=== PATIENT | male | born 2000 | race Two or more races ===

== ENCOUNTER 2021-11-22 21:45 | Observation (INO) ==
[2021-11-22] MEDS ORDERED: SODIUM CHLORIDE 0.9% 1000ML 1,000 ML IV ONE ×2 (22:03→22:53)
[2021-11-22] MEDS ORDERED: KETOROLAC TROMETHAMINE 15 MG/ML VIAL IV STA ×2 (22:03→22:53)
[2021-11-22 22:10] LABS: Basophils # (auto) 0.02 K/uL (0-0.2); Basophils % (auto) 0.3 %; Eosinophils # (auto) 0.08 K/uL (0-0.5); Hematocrit (blood only) 41.2 % (42-52); Hemoglobin 14.3 g/dL (14.0-18.0); Immature Granulocytes # (auto) 0.03 K/uL (0.00-0.02); Immature Granulocytes % (auto) 0.4 %; Lymphocytes # (auto) 2.45 K/uL (1.2-3.4); Mean Corpuscular Hgb Conc 34.7 g/dL (32-36); Mean Corpuscular Volume 86.6 fL (80-100); Mean Platelet Volume 9.5 fL (7.4-10.4); Monocytes # (auto) 0.71 K/uL (0.11-0.59); Monocytes % (auto) 9.3 %; Neutrophils # (auto) 4.36 K/uL (1.4-6.5); Platelet Count 318 K/uL (130-400); RDW Coefficient of Variation 13.1 % (11.5-14.5); RDW Standard Deviation 41.9 fL (36.4-46.3); Red Blood Count 4.76 M/uL (4.7-6.1); White Blood Count 7.65 K/uL (4.8-10.8)
[2021-11-22 22:22] LABS: Partial Thromboplastin Time 28.5 Seconds (21.0-31.0); Prothrombin Time 10.9 Seconds (9.0-12.0)
[2021-11-22 23:06] LABS: Troponin I High Sensitivity 5.2 pg/ml (0-20)
[2021-11-22 23:11] LABS: Alanine Aminotransferase 50 U/L (7-52); Alkaline Phosphatase 85 U/L (34-104); Anion Gap 4 (3-11); Aspartate Aminotransferase 29 U/L (13-39); BUN Creatinine Ratio 16.9 (10-20); Bilirubin,Total 0.5 mg/dl (0.2-1.0); Blood Urea Nitrogen 14 mg/dl (6-23); C Reactive Protein < 0.50 mg/dl (0-0.5); Calcium 8.1 mg/dl (8.5-10.1); Carbon Dioxide 26 mmol/L (21-32); Chloride 106 mmol/L (98-107); Creatinine Clr Calc Pharmacy 141.4 ml/min; Est GFR (African American) 143.7 ml/min; Glucose 91 mg/dl (70-99(Fasting)); Potassium 3.4 mmol/L (3.5-5.1); Sodium 136 mmol/L (136-145); Total Protein 6.2 gm/dl (6.0-8.3)
[2021-11-22 23:24] LABS: Albumin Globulin Ratio 1.8 (0.9-2); Globulin 2.2 gm/dl (2.5-4.0)
[2021-11-23 00:27] LABS: Adenovirus PCR Not Detected (NotDetected); Bordetella parapertussis PCR Not Detected (NotDetected); Bordetella pertussis PCR Not Detected (NotDetected); Chlamydia pneumoniae PCR Not Detected (NotDetected); Coronavirus 229E PCR Not Detected (NotDetected); Coronavirus CoV-2 (COVID19)PCR Not Detected (NotDetected); Coronavirus HKU1 PCR Not Detected (NotDetected); Coronavirus NL63 PCR Not Detected (NotDetected); Coronavirus OC43PCR Not Detected (NotDetected); Human Metapneumovirus PCR Not Detected (NotDetected); Influenza A PCR Not Detected (NotDetected); Influenza B PCR Not Detected (NotDetected); Mycoplasma pneumoniae PCR Not Detected (NotDetected); Parainfluenza Virus 1 PCR Not Detected (NotDetected); Parainfluenza Virus 2 PCR Not Detected (NotDetected); Parainfluenza Virus 3 PCR Not Detected (NotDetected); Parainfluenza Virus 4 PCR Not Detected (NotDetected); Respiratory Syncytial VirusPCR Not Detected (NotDetected); Rhinovirus/Enterovirus PCR Not Detected (NotDetected)
[2021-11-23 00:53] LABS: Lyme Ab IgG w/WB Rflx Negative (Negative); Lyme Ab IgM w/WB Rflx Negative (Negative)
--- NOTE | 2021-11-23 01:50 | Emergency Department Note ---
Impression & Plan Pericarditis, Feels feverish, Abnormal ECG ED Provider Note NAME: FAITH LARRY AGE: 21 SEX: M ARRIVES VIA: Walk-In INFORMANT: Patient ED PROVIDER(S): Jacob Abraham MD CHIEF COMPLAINT: chest pain PLAN: Disposition: Admit MEDICAL DECISION MAKING: The patient is a pleasant 21-year-old gentleman, from [place], Burmese-speaking only who presents to the emergency department accompanied by his friend for evaluation of ongoing constant chest pain since this morning after being seen in the emergency department this morning for the same symptoms with normal troponin. Patient reports his pain has continued and has worsened and so presents again this evening. He reports feeling feverish but denies objective fevers. He reports feeling nauseated at times but no vomiting diarrhea. He denies any cough or congestion. He denies any prior episodes similar to this. He denies any recent heavy lifting or straining. He works at a local [employer]. He reports that the pain is worse when lying flat and feels like a heavy pressure. This provider is a [place]mese speaker and obtained the history directly from the patient. On arrival the patient is uncomfortable but in no acute distress, afebrile with stable vital signs. Appears clinically dry. Skin is warm/clammy, Exam is otherwise unremarkable. EKG demonstrates ST abnormalities that appear to have changed from his EKG earlier today which demonstrated ST abnormality/early repolarization and this evening demonstrates T wave inversions in V2 and V3. WBC, hemoglobin and platelets within normal limits. ESR and CRP within normal limits. Chemistry without metabolic acidosis. Potassium 3.4 and electrolytes otherwise unremarkable. LFTs unremarkable. High-sensitivity troponin 5.2, within normal limits. Respiratory viral panel/bio fire was performed and was negative. Lyme screen was negative. Anaplasma/Babesia smear negative. DNA testing pending. CT of the chest was performed and per preliminary stat rad report negative for PE or acute process otherwise. This provider performed a limited bedside cardiac ultrasound and this demonstrated no overt pericardial effusion. Patient did report some improvement in his symptoms after IV fluid ration, IV APAP and repeat doses of Toradol however pain still persisting. Repeat EKG further dynamic changes with reversal of T wave inversion in V3. Patient's presentation and evaluation is suggestive of pericarditis. Patient does not have a pcp. Given his dynamic EKG changes the patient does agree with plan for admission for further evaluation and management. Colchicine ordered. Case was discussed with Dr. Bell, [facility] hospitalist, who will evaluate the patient for admission. Triage Nursing notes reviewed and agree them. Prior medical records reviewed Vital Signs: reviewed and remarkable for no significant abnormalities Differential diagnosis: Cardiac ischemia, aortic dissection, pulmonary embolism, pneumothorax, pneumonia, pericarditis, myocarditis, esophageal rupture, GERD, cholecystitis, pancreatitis, musculoskeletal, as well as other pathologies. ER treatment provided: See below. Diagnostics interpreted by me: ECG 2153: Normal sinus rhythm, 79 bpm, incomplete right bundle branch block, ST abnormalities/early repolarization, T wave inversions in V2/V3 new from EKG this morning. QTC 394, QRS 104 ECG 0200: Normal sinus rhythm, 68 bpm, no ectopy, ST abnormality/early repolarization, V3 T waves upright. QTC 389, QRS 106 Cardiac Monitoring: An order for continuous cardiac monitoring was placed and demonstrated sinus rhythm, 65 bpm, no ectopy Laboratory studies: See below Imaging studies: See below Preliminary Findings Only See Final Report For Complete Findings CTA CHEST: No pulmonary emboli or acute cardiopulmonary process. Radiologist: Bennie Mosley MD Study ready at 23:54 and initial results transmitted at 00:10 Consultation(s): Case was discussed with Dr. Bell, [facility] hospitalist, who will evaluate the patient for admission. HPI: The patient is a pleasant 21-year-old gentleman, from [place], Burmese- speaking only who presents emerged department accompanied by his friend for evaluation of ongoing constant chest pain since this morning after being seen in the emergency department this morning for the same symptoms with normal troponin. Patient reports his pain has continued and has worsened and so presents again this evening. He reports feeling feverish but denies objective fevers. He reports feeling nauseated at times but no vomiting diarrhea. He denies any cough or congestion. He denies any prior episodes similar to this. He denies any recent heavy lifting or straining. He works at a local restaurant. He reports that the pain is worse when lying flat and feels like a heavy pressure. This provider is a [place]mese speaker, obtained the history directly from the patient. ROS: See above HPI for pertinent positives & negatives. A total of 10 systems reviewed and were otherwise negative. VITALS:See Below PHYSICAL EXAMINATION: GENERAL: Awake, alert, uncomfortable-appearing, in no distress HENT: Normocephalic, atraumatic. Oropharynx with dry mucous membranes and otherwise unremarkable. EYES: Normal conjunctiva. Sclera non-icteric. NECK: Supple. No nuchal rigidity. FROM. No JVD. RESPIRATORY: Clear to auscultation. CARDIAC: Regular rate, normal rhythm. Extremities warm and well perfused. Pulses equal. ABDOMEN: Soft, non-distended. No tenderness to palpation. No rebound or guarding. No masses. RECTAL: Deferred. MUSCULOSKELETAL: Chest examination reveals no tenderness. The back is symmetrical on inspection without obvious abnormality. There is no CVA t enderness to palpation. No joint edema. LOWER EXTREMITIES: Calves are equal size bilaterally and non-tender. No edema. No discoloration. NEURO: Normal sensorium. No sensory or motor deficits noted. SKIN: Warm/clammy, No rash or jaundice noted. Jacob Abraham MD Past Med/Surg History Medical History No active medical problems Family History Denies family history of Coronary heart disease Pulmonary embolism Social History Smoking Status: Never smoker Hx Alcohol Use: No Hx Substance Use: No Preferred Language: Burmese Communication Tools: Other Quality Assurance Engineer Required: Yes Beliefs That Will Affect Care: None Current Living Situation: Other Current Living Situation Comment: living with coworker Feels Safe at Home: Yes Safety Concerns: Feels Safe At This Time Assistive Devices: None Allergies Allergies Allergy/AdvReac Type Severity Reaction Status Date / Time No Known Allergies Allergy Verified 11/23/21 00:31 Home Meds Home Medications Medication Instructions Recorded Confirmed acetaminophen 325 mg tablet 650 mg PO DIRECTED PRN 11/23/21 11/23/21 (Tylenol) Results & Data (ED) Vital Signs Vital Signs - 24 hr 11/22/21 21:49 11/22/21 22:10 11/23/21 01:06 Temperature 36.6 C 36.8 C Temperature Source Temporal Artery Scan Oral Pulse Rate 90 Pulse Rate [Right Finger] 71 74 Pulse Rhythm [Right Finger] Regular Pulse Strength [Right Finger] Normal Respiratory Rate 18 17 16 Respiratory Effort / Characteristics Non-Labored Spontaneous Non-Labored Non-Labored Spontaneous Respiratory Depth Normal Normal Normal Blood Pressure 134/86 Blood Pressure [Right Arm] 124/70 123/78 Blood Pressure Mean 102 Blood Pressure Mean [Right Arm] 88 93 Blood Pressure Position Sitting Blood Pressure Position [Right Arm] Lying Pulse Oximetry 100 98 100 Oxygen Delivery Method Room Air Room Air Room Air Sepsis Recent Fever Within 48 Hours Yes Sepsis New/Unexplained Change in Mental Status N/A Sepsis Action Taken by Nursing No Action Required Pulse Oximetry Post Tiitration 98 11/23/21 03:00 Temperature Temperature Source Pulse Rate Pulse Rate [Right Finger] 65 Pulse Rhythm [Right Finger] Pulse Strength [Right Finger] Respiratory Rate 18 Respiratory Effort / Characteristics Respiratory Depth Blood Pressure Blood Pressure [Right Arm] 126/78 Blood Pressure Mean Blood Pressure Mean [Right Arm] 94 Blood Pressure Position Blood Pressure Position [Right Arm] Pulse Oximetry 99 Oxygen Delivery Method Room Air Sepsis Recent Fever Within 48 Hours Sepsis New/Unexplained Change in Mental Status Sepsis Action Taken by Nursing Pulse Oximetry Post Tiitration Laboratory Data Attestation: I reviewed the patient's lab results. Result diagrams: 11/22/21 21:59 11/22/21 22:30 Lab Results 11/22/21 11/22/21 11/22/21 Range/Units 21:59 21:59 21:59 WBC 7.65 (4.8-10.8) K/uL RBC 4.76 (4.7-6.1) M/uL Hgb 14.3 (14.0-18.0) g/dL Hct 41.2 L (42-52) % MCV 86.6 (80-100) fL MCH 30.0 (25-34) pg MCHC 34.7 (32-36) g/dL RDW Std Deviation 41.9 (36.4-46.3) fL RDW Coeff of Delon 13.1 (11.5-14.5) % Plt Count 318 (130-400) K/uL MPV 9.5 (7.4-10.4) fL Immature Gran % (Auto) 0.4 % Neut % (Auto) 57.0 % Lymph % (Auto) 32.0 % Whitman % (Auto) 9.3 % Eos % (Auto) 1.0 % Baso % (Auto) 0.3 % Neut # (Auto) 4.36 (1.4-6.5) K/uL Lymph # (Auto) 2.45 (1.2-3.4) K/uL Whitman # (Auto) 0.71 H (0.11-0.59) K/uL Eos # (Auto) 0.08 (0-0.5) K/uL Baso # (Auto) 0.02 (0-0.2) K/uL Immature Gran # (Auto) 0.03 H (0.00-0.02) K/uL ESR 5 (0-15) mm/hr PT 10.9 (9.0-12.0) Seconds INR 1.0 (0.9-1.1) APTT 28.5 (21.0-31.0) Seconds PTT Ratio 1.0 Sodium (136-145) mmol/L Potassium (3.5-5.1) mmol/L Chloride (98-107) mmol/L Carbon Dioxide (21-32) mmol/L Anion Gap (3-11) BUN (6-23) mg/dl Creatinine (0.6-1.4) mg/dl Est Cr Clr Drug Dosing ml/min Est GFR ( Amer) ml/min Est GFR (Non-Af Amer) ml/min BUN/Creatinine Ratio (10-20) Glucose (70-99(Fasting)) mg/dl Calcium (8.5-10.1) mg/dl Phosphorus (2.5-4.9) mg/dl Magnesium (1.7-2.4) mg/dl Total Bilirubin (0.2-1.0) mg/dl AST (13-39) U/L ALT (7-52) U/L Alkaline Phosphatase (34-104) U/L Troponin I High Sens (0-20) pg/ml C-Reactive Protein (0-0.5) mg/dl Total Protein (6.0-8.3) gm/dl Albumin (3.4-5.0) gm/dl Globulin (2.5-4.0) gm/dl Albumin/Globulin Ratio (0.9-2) Adenovirus (PCR) (NotDetected) Anaplasma Smear Babesia Smear B. pertussis DNA (PCR) (NotDetected) B.parapertussis DNA PCR (NotDetected) Lyme Disease IgG Ab (Negative) Lyme Disease IgM Ab (Negative) C. pneumoniae DNA (PCR) (NotDetected) Coronavirus OC43 (PCR) (NotDetected) Coronavirus HKU1 (PCR) (NotDetected) Coronavirus 229E (PCR) (NotDetected) SARS-CoV-2 (PCR) (NotDetected) Coronavirus NL63 (PCR) (NotDetected) Human Metapneumovir PCR (NotDetected) Influenza Type A (PCR) (NotDetected) Influenza Type B (PCR) (NotDetected) M. pneumoniae (PCR) (NotDetected) Parainfluenza 1 (PCR) (NotDetected) Parainfluenza 2 (PCR) (NotDetected) Parainfluenza 3 (PCR) (NotDetected) Parainfluenza 4 (PCR) (NotDetected) RSV (PCR) (NotDetected) Entero/Rhino (PCR) (NotDetected) 11/22/21 11/22/21 11/22/21 Range/Units 22:30 23:12 23:17 WBC (4.8-10.8) K/uL RBC (4.7-6.1) M/uL Hgb (14.0-18.0) g/dL Hct (42-52) % MCV (80-100) fL MCH (25-34) pg MCHC (32-36) g/dL RDW Std Deviation (36.4-46.3) fL RDW Coeff of Delon (11.5-14.5) % Plt Count (130-400) K/uL MPV (7.4-10.4) fL Immature Gran % (Auto) % Neut % (Auto) % Lymph % (Auto) % Whitman % (Auto) % Eos % (Auto) % Baso % (Auto) % Neut # (Auto) (1.4-6.5) K/uL Lymph # (Auto) (1.2-3.4) K/uL Whitman # (Auto) (0.11-0.59) K/uL Eos # (Auto) (0-0.5) K/uL Baso # (Auto) (0-0.2) K/uL Immature Gran # (Auto) (0.00-0.02) K/uL ESR (0-15) mm/hr PT (9.0-12.0) Seconds INR (0.9-1.1) APTT (21.0-31.0) Seconds PTT Ratio Sodium 136 (136-145) mmol/L Potassium 3.4 L (3.5-5.1) mmol/L Chloride 106 (98-107) mmol/L Carbon Dioxide 26 (21-32) mmol/L Anion Gap 4 (3-11) BUN 14 (6-23) mg/dl Creatinine 0.83 (0.6-1.4) mg/dl Est Cr Clr Drug Dosing 141.4 ml/min Est GFR ( Amer) 143.7 ml/min Est GFR (Non-Af Amer) 124.0 ml/min BUN/Creatinine Ratio 16.9 (10-20) Glucose 91 (70-99(Fasting)) mg/dl Calcium 8.1 L (8.5-10.1) mg/dl Phosphorus 3.0 (2.5-4.9) mg/dl Magnesium 2.0 (1.7-2.4) mg/dl Total Bilirubin 0.5 (0.2-1.0) mg/dl AST 29 (13-39) U/L ALT 50 (7-52) U/L Alkaline Phosphatase 85 (34-104) U/L Troponin I High Sens 5.2 (0-20) pg/ml C-Reactive Protein < 0.50 (0-0.5) mg/dl Total Protein 6.2 D (6.0-8.3) gm/dl Albumin 4.0 (3.4-5.0) gm/dl Globulin 2.2 L (2.5-4.0) gm/dl Albumin/Globulin Ratio 1.8 (0.9-2) Adenovirus (PCR) Not Detected (NotDetected) Anaplasma Smear See Comment Babesia Smear See Comment B. pertussis DNA (PCR) Not Detected (NotDetected) B.parapertussis DNA PCR Not Detected (NotDetected) Lyme Disease IgG Ab (Negative) Lyme Disease IgM Ab (Negative) C. pneumoniae DNA (PCR) Not Detected (NotDetected) Coronavirus OC43 (PCR) Not Detected (NotDetected) Coronavirus HKU1 (PCR) Not Detected (NotDetected) Coronavirus 229E (PCR) Not Detected (NotDetected) SARS-CoV-2 (PCR) Not Detected (NotDetected) Coronavirus NL63 (PCR) Not Detected (NotDetected) Human Metapneumovir PCR Not Detected (NotDetected) Influenza Type A (PCR) Not Detected (NotDetected) Influenza Type B (PCR) Not Detected (NotDetected) M. pneumoniae (PCR) Not Detected (NotDetected) Parainfluenza 1 (PCR) Not Detected (NotDetected) Parainfluenza 2 (PCR) Not Detected (NotDetected) Parainfluenza 3 (PCR) Not Detected (NotDetected) Parainfluenza 4 (PCR) Not Detected (NotDetected) RSV (PCR) Not Detected (NotDetected) Entero/Rhino (PCR) Not Detected (NotDetected) 11/22/21 Range/Units 23:17 WBC (4.8-10.8) K/uL RBC (4.7-6.1) M/uL Hgb (14.0-18.0) g/dL Hct (42-52) % MCV (80-100) fL MCH (25-34) pg MCHC (32-36) g/dL RDW Std Deviation (36.4-46.3) fL RDW Coeff of Delon (11.5-14.5) % Plt Count (130-400) K/uL MPV (7.4-10.4) fL Immature Gran % (Auto) % Neut % (Auto) % Lymph % (Auto) % Whitman % (Auto) % Eos % (Auto) % Baso % (Auto) % Neut # (Auto) (1.4-6.5) K/uL Lymph # (Auto) (1.2-3.4) K/uL Whitman # (Auto) (0.11-0.59) K/uL Eos # (Auto) (0-0.5) K/uL Baso # (Auto) (0-0.2) K/uL Immature Gran # (Auto) (0.00-0.02) K/uL ESR (0-15) mm/hr PT (9.0-12.0) Seconds INR (0.9-1.1) APTT (21.0-31.0) Seconds PTT Ratio Sodium (136-145) mmol/L Potassium (3.5-5.1) mmol/L Chloride (98-107) mmol/L Carbon Dioxide (21-32) mmol/L Anion Gap (3-11) BUN (6-23) mg/dl Creatinine (0.6-1.4) mg/dl Est Cr Clr Drug Dosing ml/min Est GFR ( Amer) ml/min Est GFR (Non-Af Amer) ml/min BUN/Creatinine Ratio (10-20) Glucose (70-99(Fasting)) mg/dl Calcium (8.5-10.1) mg/dl Phosphorus (2.5-4.9) mg/dl Magnesium (1.7-2.4) mg/dl Total Bilirubin (0.2-1.0) mg/dl AST (13-39) U/L ALT (7-52) U/L Alkaline Phosphatase (34-104) U/L Troponin I High Sens (0-20) pg/ml C-Reactive Protein (0-0.5) mg/dl Total Protein (6.0-8.3) gm/dl Albumin (3.4-5.0) gm/dl Globulin (2.5-4.0) gm/dl Albumin/Globulin Ratio (0.9-2) Adenovirus (PCR) (NotDetected) Anaplasma Smear Babesia Smear B. pertussis DNA (PCR) (NotDetected) B.parapertussis DNA PCR (NotDetected) Lyme Disease IgG Ab Negative (Negative) Lyme Disease IgM Ab Negative (Negative) C. pneumoniae DNA (PCR) (NotDetected) Coronavirus OC43 (PCR) (NotDetected) Coronavirus HKU1 (PCR) (NotDetected) Coronavirus 229E (PCR) (NotDetected) SARS-CoV-2 (PCR) (NotDetected) Coronavirus NL63 (PCR) (NotDetected) Human Metapneumovir PCR (NotDetected) Influenza Type A (PCR) (NotDetected) Influenza Type B (PCR) (NotDetected) M. pneumoniae (PCR) (NotDetected) Parainfluenza 1 (PCR) (NotDetected) Parainfluenza 2 (PCR) (NotDetected) Parainfluenza 3 (PCR) (NotDetected) Parainfluenza 4 (PCR) (NotDetected) RSV (PCR) (NotDetected) Entero/Rhino (PCR) (NotDetected) Administered Medications Acetaminophen (Acetaminophen 325 Mg Tab) 650 mg PO Q4H PRN PRN Reason: Pain or Fever Stop: 12/23/21 05:25 Last Admin: 11/23/21 05:38 Dose: 650 mg Documented by: [id number] Discontinued Medications Colchicine (Colchicine 0.6 Mg Tab) 0.6 mg PO NOW ONE Stop: 11/23/21 02:32 Last Admin: 11/23/21 03:28 Dose: 0.6 mg Documented by: [id number] Sodium Chloride (Nss 1000ml) 1,000 mls @ 999 mls/hr IV .Q1H1M ONE Stop: 11/22/21 23:03 Last Infusion: 11/22/21 23:25 Dose: 0 mls/hr Documented by: [id number] Admin: 11/22/21 22:14 Dose: 999 mls/hr Documented by: [id number] Sodium Chloride (Nss 1000ml) 1,000 mls @ 999 mls/hr IV .Q1H1M ONE Stop: 11/22/21 23:53 Last Infusion: 11/23/21 01:07 Dose: 0 mls/hr Documented by: [id number] Admin: 11/22/21 23:15 Dose: 999 mls/hr Documented by: [id number] Ketorolac Tromethamine (Ketorolac Tromethamine 15 Mg/Ml Vial) 15 mg IV NOW STA Stop: 11/22/21 22:04 Last Admin: 11/22/21 22:13 Dose: 15 mg Documented by: [id number] Ketorolac Tromethamine (Ketorolac Tromethamine 15 Mg/Ml Vial) 15 mg IV NOW STA Stop: 11/22/21 22:54 Last Admin: 11/22/21 23:15 Dose: 15 mg Documented by: [id number] Potassium Chloride (Potassium Chloride Crtab 20 Meq Tabcr) 40 meq PO NOW STA Stop: 11/23/21 03:15 Last Admin: 11/23/21 03:29 Dose: 40 meq Documented by: [id number] Imaging Data Radiologist's Impression: [facility] Preliminary Findings Only See Final Report For Complete Findings CTA CHEST: No pulmonary emboli or acute cardiopulmonary process. Radiologist: Bennie Mosley MD Study ready at 23:54 and initial results transmitted at 00:10 Discharge Plan Visit Data Chief Complaint: Chest Pain Stated Complaint: CHEST PAIN, HEART PALPITATIONS ED Provider: Jacob Abraham Discharge Problem: Pericarditis, Feels feverish, Abnormal ECG Discharge Instructions Interventions: ED Discharge Assessment Last Done: 11/23/21 04:51
[2021-11-23] MEDS ORDERED: COLCHICINE 0.6 MG TAB PO ONE (02:31)
[2021-11-23] MEDS ORDERED: POTASSIUM CHLORIDE CRTAB 20 MEQ TABCR PO STA (03:14)
--- NOTE | 2021-11-23 03:14 | History & Physical Report ---
Date of Service November 23, 2021 Assessment & Plan (1) Atypical chest pain: Plan: Atypical chest pain- Reproducible Changes noted on EKG by that of right bundle branch block and otherwise lead placement CT angiography without PE or pericardial effusion No pericardial friction rub on exam Observation to telemetry, order echocardiogram, and cardiology consult History of Present Illness Chief Complaint: The patient initially presented to the emergency department on the morning of 11/22 with complaint of intermittent sharp chest discomfort accompanied by nausea without vomiting or abdominal pain. He had a work-up at that time including normal laboratory work including a highly sensitive troponin, normal EKG and normal D-dimer. He was given a dose of Toradol IV and discharged to home after improvement in his discomfort. The patient presents to the emergency department this evening with the same complaint. Laboratories again were normal, except for a potassium of 3.4. EKG showed a right bundle branch block and some variable changes due to lead placement. CT angiography was negative for PE. The patient has been referred by emergency department due to concerns regarding possible pericarditis Primary Care Provider: NO PCP Allergies Allergy/AdvReac Type Severity Reaction Status Date / Time No Known Allergies Allergy Verified 11/23/21 00:31 Home Medications Medication Instructions Recorded Confirmed Type acetaminophen 325 mg tablet 650 mg PO DIRECTED PRN 11/23/21 11/23/21 History (Tylenol) Past Med/Surg History Medical History No active medical problems Family History Denies family history of Coronary heart disease Pulmonary embolism Social History Smoking Status: Never smoker Preferred Language: Mauritanian Communication Tools: Other Feels Safe at Home: Yes Review of Systems Review of Systems: Review of systems for the most part is limited due to Mauritanian-speaking only patient, but is as noted above. Physical Exam Physical Exam: The patient is awake, alert, well developed and well nourished, normocephalic and atraumatic, lying in bed and in no acute distress. HEENT--PERRL, EOMI, mucous membranes and oropharynx Neck--supple. No JVD. No bruits. Thyroid normal, trachea midline, no adenopathy. Heart--normal S1 and S2. No murmurs, rubs or gallops. Lungs--clear bilaterally, no respiratory distress, no accessory muscle use. Abdomen--normal bowel sounds and soft. Nontender. Nondistended, no hernias or masses, no organomegaly. Extremities--no cyanosis or clubbing. No edema. Dermatologic--normal skin turgor, normal color, no abnormal lymph nodes, no rash. Neurologic--cranial nerves II through XII grossly intact. Rheumatologic--normal range of motion. Psychiatric--normal affect. Results & Data Results & Data ([facility]) Vital Signs (Past 12 Hours) Vital Signs Temp Pulse Pulse Resp BP BP Pulse Ox 11/23/21 01:06 74 16 123/78 100 11/22/21 22:10 36.8 C 71 17 124/70 98 11/22/21 21:49 36.6 C 90 18 134/86 100 Laboratory Results Laboratory Results WBC 7.65 K/uL (4.8-10.8) 11/22/21 21:59 RBC 4.76 M/uL (4.7-6.1) 11/22/21 21:59 Hgb 14.3 g/dL (14.0-18.0) 11/22/21 21:59 Hct 41.2 % (42-52) L 11/22/21 21:59 MCV 86.6 fL (80-100) 11/22/21 21:59 MCH 30.0 pg (25-34) 11/22/21 21:59 MCHC 34.7 g/dL (32-36) 11/22/21 21:59 RDW Std Deviation 41.9 fL (36.4-46.3) 11/22/21 21:59 RDW Coeff of Delon 13.1 % (11.5-14.5) 11/22/21 21:59 Plt Count 318 K/uL (130-400) 11/22/21 21:59 MPV 9.5 fL (7.4-10.4) 11/22/21 21:59 Immature Gran % (Auto) 0.4 % 11/22/21 21:59 Neut % (Auto) 57.0 % 11/22/21 21:59 Lymph % (Auto) 32.0 % 11/22/21 21:59 [place] % (Auto) 9.3 % 11/22/21 21:59 Eos % (Auto) 1.0 % 11/22/21 21:59 Baso % (Auto) 0.3 % 11/22/21 21:59 Neut # (Auto) 4.36 K/uL (1.4-6.5) 11/22/21 21:59 Lymph # (Auto) 2.45 K/uL (1.2-3.4) 11/22/21 21:59 [place] # (Auto) 0.71 K/uL (0.11-0.59) H 11/22/21 21:59 Eos # (Auto) 0.08 K/uL (0-0.5) 11/22/21 21:59 Baso # (Auto) 0.02 K/uL (0-0.2) 11/22/21 21:59 Immature Gran # (Auto) 0.03 K/uL (0.00-0.02) H 11/22/21 21:59 ESR 5 mm/hr (0-15) 11/22/21 21:59 PT 10.9 Seconds (9.0-12.0) 11/22/21 21:59 INR 1.0 (0.9-1.1) 11/22/21 21:59 APTT 28.5 Seconds (21.0-31.0) 11/22/21 21: PTT Ratio 1.0 11/22/21 21:59 Sodium 136 mmol/L (136-145) 11/22/21 22:30 Potassium 3.4 mmol/L (3.5-5.1) L 11/22/21 22:30 Chloride 106 mmol/L (98-107) 11/22/21 22:30 Carbon Dioxide 26 mmol/L (21-32) 11/22/21 22:30 Anion Gap 4 (3-11) 11/22/21 22:30 BUN 14 mg/dl (6-23) 11/22/21 22:30 Creatinine 0.83 mg/dl (0.6-1.4) 11/22/21 22:30 Est Cr Clr Drug Dosing 141.4 ml/min 11/22/21 22:30 Est GFR ( Amer) 143.7 ml/min 11/22/21 22:30 Est GFR (Non-Af Amer) 124.0 ml/min 11/22/21 22:30 BUN/Creatinine Ratio 16.9 (10-20) 11/22/21 22:30 Glucose 91 mg/dl (70-99(Fasting)) 11/22/21 22:30 Calcium 8.1 mg/dl (8.5-10.1) L 11/22/21 22:30 Phosphorus 3.0 mg/dl (2.5-4.9) 11/22/21 22:30 Magnesium 2.0 mg/dl (1.7-2.4) 11/22/21 22:30 Total Bilirubin 0.5 mg/dl (0.2-1.0) 11/22/21 22:30 AST 29 U/L (13-39) 11/22/21 22:30 ALT 50 U/L (7-52) 11/22/21 22:30 Alkaline Phosphatase 85 U/L (34-104) 11/22/21 22:30 Troponin I High Sens 5.2 pg/ml (0-20) 11/22/21 22:30 C-Reactive Protein < 0.50 mg/dl (0-0.5) 11/22/21 22:30 Total Protein 6.2 gm/dl (6.0-8.3) D 11/22/21 22:30 Albumin 4.0 gm/dl (3.4-5.0) 11/22/21 22:30 Globulin 2.2 gm/dl (2.5-4.0) L 11/22/21 22:30 Albumin/Globulin Ratio 1.8 (0.9-2) 11/22/21 22:30 Adenovirus (PCR) Not Detected (NotDetected) 11/22/21 23:12 Anaplasma Smear See Comment 11/22/21 23:17 Babesia Smear See Comment 11/22/21 23:17 B. pertussis DNA (PCR) Not Detected (NotDetected) 11/22/21 23:12 B.parapertussis DNA PCR Not Detected (NotDetected) 11/22/21 23:12 Lyme Disease IgG Ab Negative (Negative) 11/22/21 23:17 Lyme Disease IgM Ab Negative (Negative) 11/22/21 23:17 C. pneumoniae DNA (PCR) Not Detected (NotDetected) 11/22/21 23:12 Coronavirus OC43 (PCR) Not Detected (NotDetected) 11/22/21 23:12 Coronavirus HKU1 (PCR) Not Detected (NotDetected) 11/22/21 23:12 Coronavirus 229E (PCR) Not Detected (NotDetected) 11/22/21 23:12 SARS-CoV-2 (PCR) Not Detected (NotDetected) 11/22/21 23:12 Coronavirus NL63 (PCR) Not Detected (NotDetected) 11/22/21 23:12 Human Metapneumovir PCR Not Detected (NotDetected) 11/22/21 23:12 Influenza Type A (PCR) Not Detected (NotDetected) 11/22/21 23:12 Influenza Type B (PCR) Not Detected (NotDetected) 11/22/21 23:12 M. pneumoniae (PCR) Not Detected (NotDetected) 11/22/21 23:12 Parainfluenza 1 (PCR) Not Detected (NotDetected) 11/22/21 23:12 Parainfluenza 2 (PCR) Not Detected (NotDetected) 11/22/21 23:12 Parainfluenza 3 (PCR) Not Detected (NotDetected) 11/22/21 23:12 Parainfluenza 4 (PCR) Not Detected (NotDetected) 11/22/21 23:12 RSV (PCR) Not Detected (NotDetected) 11/22/21 23:12 Entero/Rhino (PCR) Not Detected (NotDetected) 11/22/21 23:12 Code Status & VTE Plan Code Status Full code VTE Prophylaxis Plan VTE Prophylaxis will be ordered: Yes PG Care Time/CCT Total # of Minutes Spent Total Time Spent with Patient: Total time spent is greater than 50% in coordination of care (as documented) at patient's floor/unit and/or counseling patient: Coding Level of Care Code INT OBSERVATION CARE 70M LVL 3 Diagnoses Atypical chest pain R07.89
[2021-11-23] MEDS ORDERED: ACETAMINOPHEN 325 MG TAB PO PRN (05:26)
[2021-11-23] MEDS ORDERED: ONDANSETRON INJ 2 MG/ML 2 ML VIAL IV PRN (05:26)
--- NOTE | 2021-11-23 07:29 | CT Scan Report ---
CT angio chest PE protocol CLINICAL HISTORY: chest pain PE TECHNIQUE: Multidetector row helical CT of the chest was performed with angiographic protocol. Garcia l and sagittal reformations were obtained. Coronal and sagittal MIPS were obtained from the axial nitish a set and were submitted for review. Automated dose lowering techniques and/or adjustment according to patient size were utilized for this exam. CT DOSE: 334.06 mGy.cm Comparison: None available at the time of this dictation. FINDINGS: Lungs and pleura: Normal. Heart and pericardium: Heart size is normal. No pericardial effusion. Vessels: No evidence of pulmonary embolism. Mediastinum and kelby: Subcentimeter lymph nodes are seen. Chest wall and lower neck: Unremarkable. Abdomen: Unremarkable. Bones: Unremarkable. IMPRESSION: No evidence of pulmonary embolism. ACT 112: Negative or not required by law. Electronically signed by: Clive Shoemaker M.D. 11/23/2021 7:28 AM
--- NOTE | 2021-11-23 10:27 | Cardiology Consultation ---
Date of Consultation November 23, 2021 Assessment & Plan (1) Chest pain: Given this pt's negative troponin, reproducible chest pain on palpation and near complete resolution of pain with anti-inflammatory medication, I do not suspect his chest pain is cardiovascular in etiology. He likely has a musculoskeletal cause of chest pain, possibly costochondritis. However, his serial EKGs did demonstrate persistent ST segment abnormality and T-wave inversions. Additionally, his clinical history does raise concern for pericarditis. While he does lack the classic pericardial friction rub, an echocardiogram is warranted. Echocardiogram results- normal EF 60-65%, no wall motion abnormality. Likely musculoskeletal/costochondritis. Cardiology signing off, contact with any further questions. Please see Dr. Leyva's attestation for any further updates. Supervising Physician Co-Signing Physician Notes Pt seen and examined. Agree with Dr. Rojas's assessment and plan. Suspect musculoskeletal chest pain based on physical exam and negative w/u. Stable for hospital discharge on NSAIDs. Followup with PCP. History of Present Illness Reason for Consultation: Chest pain Requesting Physician: Westley Bell MD Attending Physician: Myra Mcdonnell MD History of Present Illness 21 yo M with no significant PMH presenting with acute chest pain. 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 Pt reports chest pain beginning yesterday morning. Describes pain as sudden onset, L substernal crushing pain with 7/10 severity, radiation to the L shoulder, constant and worsened by deep inspiration as well as laying supine. Never experienced this pain before. Pt urgently went to ED where he was hemodynamically stable, afebrile and workup revealed EKG with some ST abn ormality/early repolarization but otherwise unremarkable. Also found to have normal coagulation studies, D-dimer, negative CXR, mild transaminitis and hypokalemia at 3.4, negative troponin HS and CRP. Pt discharged home after IV Toradol improved his pain control with working diagnosis of musculoskeletal chest pain. Pain continued throughout day, remained constant and worsened. Accompanied by nausea and subjective fevers. Pt returned to ED later in evening- HDS, afebrile, workup- CTA negative, resolved transaminitis, K 3.4, RVP negative, tickborne illness panel negative. Repeat EKG demonstrated evolving ST abnormalities/early repolarization with new T wave inversions in V2 and V3. Limited bedside cardiac ultrasound did not find any evidence of effusion. Third EKG a few hours afterward demonstrated T wave inversions in V1 and V2 with resolution in V3. Pt was treated with IV fluids, IV Tylenol and IV Toradol which did provide pain relief. On evaluation, pt states he feels well and denies chest pain. Denies any family history of heart disease or similar occurrences in his family members. Denies alcohol, tobacco or illicit drug use. Denies at-risk sexual behavior. Denies fever, nausea, other acute complaints. Allergies Allergy/AdvReac Type Severity Reaction Status Date / Time No Known Allergies Allergy Verified 11/23/21 00:31 Home Medications Medication Instructions Recorded Confirmed Type acetaminophen 325 mg tablet 650 mg PO DIRECTED PRN 11/23/21 11/23/21 History (Tylenol) Patient History Medical History No active medical problems Family History Denies family history of Coronary heart disease Pulmonary embolism Social History Smoking Status: Never smoker Hx Alcohol Use: No Hx Substance Use: No Preferred Language: Cymro Communication Tools: Other Pediatric Dietician Required: Yes Beliefs That Will Affect Care: None Current Living Situation: Other Current Living Situation Comment: living with coworker Feels Safe at Home: Yes Assistive Devices: None Review of Systems Review of Systems: Per HPI Physical Exam Physical Exam: General: well-appearing, laying in bed, no acute distress HEENT: EOMI, moist mucous membranes, no anterior/posterior cervical lymphadenopathy CV: RRR, normal S1 and S2, no murmurs noted. No pericardial friction rub appreciated in end expiration with pt leaning forward Resp: CTAB, unlabored respirations, no increased work of breathing Abd: soft, nontender, nondistended Neuro: grossly alert and oriented, no focal motor or sensory deficits Skin: no rashes, warm and dry MSK: reproducible chest pain with 1/10 severity over L sternum with deep palpation Results & Data ([facility]) Vital Signs (Past 12 Hours) Vital Signs Temp Pulse Pulse Resp BP Pulse Ox 11/23/21 07:34 36.9 C 86 18 116/75 99 11/23/21 05:10 82 06/22/22 05:08 36.9 C 75 16 120/78 99 11/23/21 03:00 65 18 126/78 99 11/23/21 01:06 74 16 123/78 100 PG Care Time/CCT Total # of Minutes Spent Total Time Spent with Patient: Total time spent is greater than 50% in coordination of care (as documented) at patient's floor/unit and/or counseling patient: Coding Level of Care Code 62766 Inpt Consult Level 3 Diagnoses Chest pain R07.9 Resident Activity Tracking Resident Involvement: Resident Care Provided Care Provided: Adult Hospital Medicine
--- NOTE | 2021-11-23 10:45 | XCELERA ---
[id number]
--- NOTE | 2021-11-23 12:03 | Electrocardiogram Report ---
Test Reason : Blood Pressure : / mmHG Vent. Rate : 079 BPM Atrial Rate : 079 BPM P-R Int : 142 ms QRS Dur : 104 ms QT Int : 344 ms P-R-T Axes : 064 077 050 degrees QTc Int : 394 ms Normal sinus rhythm Possible Left atrial enlargement RSR' or QR pattern in V1 suggests right ventricular conduction delay ST elevation, consider early repolarization, pericarditis, or injury Abnormal ECG When compared with ECG of 22-NOV-2021 09:38, T wave inversion V1-V3 now present Confirmed by Alexander Leyva ([id number]) on 11/23/2021 12:02:41 PM Referred By: REFERRED SELF Confirmed By:Alexander Leyva
--- NOTE | 2021-11-23 12:05 | Electrocardiogram Report ---
Test Reason : Blood Pressure : / mmHG Vent. Rate : 068 BPM Atrial Rate : 068 BPM P-R Int : 146 ms QRS Dur : 106 ms QT Int : 366 ms P-R-T Axes : 059 070 045 degrees QTc Int : 389 ms Normal sinus rhythm Early repolarization Normal ECG When compared with ECG of 22-NOV-2021 21:53, (unconfirmed) No significant change was found Confirmed by Alexander Leyva ([id number]) on 11/23/2021 12:05:11 PM Referred By: REFERRED SELF Confirmed By:Alexander Leyva
--- NOTE | 2021-11-23 13:02 | Discharge Summary ---
Date of Service November 23, 2021 Principal Diagnosis costochondritis Discharge Exam The patient is awake, alert and oriented 3, well developed and well nourished, normocephalic and atraumatic, lying in bed and in no acute distress. HEENT--PERRL, EOMI, mucous membranes and oropharynx mildly dry Neck--supple. No JVD. No bruits. Thyroid normal, trachea midline, no adenopathy. Heart--normal S1 and S2. No murmurs, rubs or gallops. Lungs--clear bilaterally, no respiratory distress, no accessory muscle use. Abdomen--normal bowel sounds and soft. Mild epigastric and left sided abdominal pain Extremities--no cyanosis or clubbing. No edema. Dermatologic--normal skin turgor, normal color, no abnormal lymph nodes, no rash. Neurologic--cranial nerves II through XII grossly intact. Rheumatologic--normal range of motion. Psychiatric--normal affect. Discharge Data Allergies Allergy/AdvReac Type Severity Reaction Status Date / Time No Known Allergies Allergy Verified 11/23/21 00:31 Consultations 11/23/21 02:35 ED Decision to Admit Stat 11/23/21 05:26 Consult Cardiology Routine Ordered Studies 11/22/21 22:53 CT angio chest PE protocol Urgent Hospital Course (1) Atypical chest pain: Atypical chest pain- most likely costochondritis Reproducible CT angiography without PE or pericardial effusion No pericardial friction rub on exam ECHO wnl d/c home on NSAIDS Total Time Total Time Spent Total Time Spent (In Minutes): 35 Discharge Plan Discharge Items Patient Disposition: Home - Self-Care Reason For Visit: ATYPICAL CHEST PAIN Discharge Diagnosis: costochondritis Activity: Resume your previous activity Non-emergency contact: Primary Care Provider Call non-emergency contact if: you have any medication questions Follow-up/Referrals: PCP,NO [Primary Care Provider] - Diet: Regular Addtl Attending Provider Instructions: please make appointment to follow up with your regular PCP Pending Studies at Discharge: No Stand-Alone Forms: My [employer], Smoking Cessation Medications and DC Order Prescriptions: New ibuprofen 200 mg tablet 200 mg PO Q8H PRN (Reason: pain) Qty: 10 RF: 0 Continued acetaminophen [Tylenol] 325 mg Tablet 650 mg PO DIRECTED PRN (Reason: PAIN/FEVER) RF: 0 Discharge Orders: Discharge Order (Routine); Ordered 11/23/21 Ordered By: Myra Mcdonnell Admission Data Admit Date/Time: 11/23/21 03:12 Attending Provider: Myra Mcdonnell Admit Provider: Westley Bell Primary Care Provider: PCP,MICKI Other Providers: Westley Bell ; Alexander Leyva Coding Level of Care Code D/C DAY MANAGEMENT >30 MINS Diagnoses Atypical chest pain R07.89 Time Spent (min) 35
== END 2021-11-23 13:15 | disposition home or self-care (01) ==
LOC: ED 21:45 → 2W 21:45 → SUATTDRO 11-23 03:12 → 2W 11-23 04:51